=== PATIENT | male | born 1950 | race Caucasian/White ===

== ENCOUNTER 2021-02-12 13:22 | Inpatient (IN) ==
[2021-02-12 15:01] LABS: Basophils % 0.3 %; Eosinophils # 0.1 K/mcL (0.0-0.6); Eosinophils % 1.7 %; Hematocrit 35.4 % (37.5-50.1); Hemoglobin 11.7 g/dL (12.9-16.9); Immature Granulocytes % 0.2 % (0-4); Lymphocytes # 2.2 K/mcL (0.6-4.6); Lymphocytes % 34.1 %; Mean Corpuscular HGB Conc 33.1 g/dL (31.6-35.5); Mean Corpuscular Hemoglobin 32.7 pg (28.0-33.3); Mean Corpuscular Volume 98.9 fL (83.0-100.0); Mean Platelet Volume 10.9 fL (9.4-12.4); Monocytes # 0.8 K/mcL (0.0-1.3); Monocytes % 12.7 %; Neutrophils # 3.2 K/mcL (1.6-8.9); Platelet Count 168 K/mcL (140-400); Red Blood Count 3.58 M/mcL (4.19-5.50); Red Cell Distribution Width 12.3 % (11.5-14.5); White Blood Count 6.3 K/mcL (4.3-11.1)
[2021-02-12 15:22] LABS: Alanine Aminotransferase 14 Units/L (7-52); Albumin 3.3 g/dL (3.5-5.7); Albumin/Globulin Ratio 1.3 (1.1-2.2); Alkaline Phosphatase 47 Units/L (34-104); Aspartate Amino Transferase 33 Units/L (13-39); BUN/Creatinine Ratio 32 (6-26); Bilirubin,Direct 0.1 mg/dL (0.0-0.2); Bilirubin,Indirect 0.3 mg/dL (0.0-1.0); Bilirubin,Total 0.4 mg/dL (0.3-1.0); Blood Urea Nitrogen 26 mg/dL (8-23); Carbon Dioxide 27 mEq/L (23-29); Chloride 113 mEq/L (98-107); Creatine Kinase 1888 Units/L (30-223); Ethanol < 10 mg/dL (Less than 10); Globulin 2.5 g/dL (2.4-3.5); Glucose 82 mg/dL (70-105); Osmolality,Calculated 302 (280-300); Potassium 3.8 mEq/L (3.5-5.1); Sodium 144 mEq/L (136-145); Total Protein 5.8 g/dL (6.4-8.9); Troponin I < 0.03 ng/mL (< 0.04); eGFR For African Americans > 60 (> 60); eGFR For Non-African Americans > 60 (> 60)
[2021-02-12 15:35] LABS: Thyroid Stimulating Hormone 0.497 mcIU/mL (0.340-5.600)
[2021-02-12 15:40] LABS: Amphetamine Screen,Urine Negative ng/mL (Cutoff=1000); Barbiturate Screen,Urine Negative ng/mL (Cutoff=200); Benzodiazepines Screen,Urine Negative ng/mL (Cutoff=200); Cannabinoid Screen,Urine Negative ng/mL (Cutoff = 50); Cocaine Screen,Urine Negative ng/mL (Cutoff= 300); Opiate Screen,Urine Negative ng/mL (Cutoff=300); Phencyclidine Screen,Urine Negative ng/mL (Cutoff=25)
[2021-02-12 15:44] LABS: Bacteria,Urine Few per hpf (None-Few); Bilirubin,Urine Negative (Negative); Blood,Urine Negative (Negative); Clarity,Urine Clear (Clear); Color,Urine Yellow (Yellow); Glucose,Urine (UA) Normal (Normal); Ketones,Urine Negative (Negative); Leukocyte Esterase,Urine Small (Negative); Mucus,Urine Few per lpf (None-Few); Nitrite,Urine Negative (Negative); PH,Urine 6.5 pH Units (5.0-8.0); Protein,Urine Trace mg/dL (Neg-Trace); RBC,Urine 0-3 per hpf (0-3); Specific Gravity,Urine 1.027 (1.010-1.025); Urobilinogen,Urine Normal (Normal)
[2021-02-12] MEDS ORDERED: 0.9 % Sodium Chloride 1,000 ML IVC SCH (16:00)
[2021-02-12] MEDS ORDERED: Ondansetron 4 MG/2 ML VIAL IVP PRN (16:27)
[2021-02-12] MEDS ORDERED: Naloxone 0.4 MG/ML INJ IVP PRN (16:27)
[2021-02-12] MEDS: 0.9 % Sodium Chloride 1,000 ML IVC SCH ×2 (16:51→21:57)
[2021-02-12] MEDS ORDERED: Aspirin 81 MG TAB.CHEW PO SCH (17:15)
[2021-02-12 18:41] LABS: INR 1.2
[2021-02-12 18:43] LABS: Activated Partial Thrombo Time 29.1 Seconds (26.0-36.0)
[2021-02-12] MEDS: *HR* Heparin 5,000 UNIT/ML VIAL SQ SCH (19:40)
[2021-02-13] MEDS: 0.9 % Sodium Chloride 1,000 ML IVC SCH ×3 (05:26→18:04)
[2021-02-13] MEDS: *HR* Heparin 5,000 UNIT/ML VIAL SQ SCH ×2 (05:27→16:14)
[2021-02-13 06:38] LABS: Basophils % 0.6 %; Eosinophils # 0.1 K/mcL (0.0-0.6); Eosinophils % 2.5 %; Hematocrit 33.3 % (37.5-50.1); Hemoglobin 11.2 g/dL (12.9-16.9); Immature Granulocytes % 0.4 % (0-4); Lymphocytes # 1.8 K/mcL (0.6-4.6); Lymphocytes % 35.1 %; Mean Corpuscular HGB Conc 33.6 g/dL (31.6-35.5); Mean Corpuscular Hemoglobin 32.6 pg (28.0-33.3); Mean Corpuscular Volume 96.8 fL (83.0-100.0); Mean Platelet Volume 10.9 fL (9.4-12.4); Monocytes # 0.8 K/mcL (0.0-1.3); Monocytes % 15.3 %; Neutrophils # 2.4 K/mcL (1.6-8.9); Platelet Count 164 K/mcL (140-400); Red Blood Count 3.44 M/mcL (4.19-5.50); Red Cell Distribution Width 12.2 % (11.5-14.5); Segmented Neutrophils % 46.1 %; White Blood Count 5.2 K/mcL (4.3-11.1)
[2021-02-13 07:05] LABS: Platelet Estimate Normal (Normal)
[2021-02-13 07:11] LABS: BUN/Creatinine Ratio 28 (6-26); Blood Urea Nitrogen 22 mg/dL (8-23); Calcium 8.4 mg/dL (8.6-10.3); Carbon Dioxide 26 mEq/L (23-29); Chloride 109 mEq/L (98-107); Chol/HDL Ratio 4.4 (0-4.9); Cholesterol 128 mg/dL (< 200); Creatine Kinase 2418 Units/L (30-223); Glucose 92 mg/dL (70-105); HDL Cholesterol 29 mg/dL (40-59); LDL Cholesterol,Calculated 76 mg/dL (< 100); Magnesium 1.9 mg/dL (1.6-2.6); Osmolality,Calculated 293 (280-300); Phosphorous 2.9 mg/dL (2.7-4.5); Potassium 4.1 mEq/L (3.5-5.1); Sodium 140 mEq/L (136-145); Triglycerides 116 mg/dL (< 150); eGFR For African Americans > 60 (> 60); eGFR For Non-African Americans > 60 (> 60)
[2021-02-13] MEDS: cefTRIAXone 1,000 MG in Water for inj. (sterile) 10 ML IVP SCH (11:29)
[2021-02-13] MEDS: Doxycycline 100 MG in 0.9 % Sodium Chloride Mini Bag 100 ML IVPB SCH ×2 (11:30→23:11)
[2021-02-13] MEDS: Acetaminophen 325 MG TABLET PO PRN ×2 (14:45→21:16)
[2021-02-13] MEDS ORDERED: Albuterol 2.5 MG/3 ML NEBULIZER IH PRN (15:20)
[2021-02-13] MEDS ORDERED: Doxycycline 100 MG in 0.9 % Sodium Chloride Mini Bag 100 ML IVPB SCH (18:00)
[2021-02-13] MEDS: QUEtiapine Fumarate 300 MG TABLET PO SCH (21:09)
[2021-02-13] MEDS: Divalproex (24 HR) 500 MG TABLET PO SCH (21:09)
[2021-02-13] MEDS: Gabapentin 400 MG CAPSULE PO SCH (21:09)
[2021-02-13] MEDS: Mirtazapine 15 MG TABLET PO SCH (21:09)
[2021-02-13] MEDS: Cyprohepatdine 4 MG TABLET PO SCH (21:16)
[2021-02-14] MEDS: 0.9 % Sodium Chloride 1,000 ML IVC SCH ×3 (01:19→17:20)
[2021-02-14] MEDS: *HR* Heparin 5,000 UNIT/ML VIAL SQ SCH ×2 (05:10→16:29)
[2021-02-14 06:04] LABS: Basophils % 0.5 %; Eosinophils # 0.1 K/mcL (0.0-0.6); Eosinophils % 2.3 %; Hematocrit 33.3 % (37.5-50.1); Hemoglobin 11.3 g/dL (12.9-16.9); Immature Granulocytes % 0.8 % (0-4); Lymphocytes # 1.9 K/mcL (0.6-4.6); Lymphocytes % 47.7 %; Mean Corpuscular HGB Conc 33.9 g/dL (31.6-35.5); Mean Corpuscular Hemoglobin 32.6 pg (28.0-33.3); Mean Platelet Volume 10.6 fL (9.4-12.4); Monocytes # 0.6 K/mcL (0.0-1.3); Monocytes % 13.8 %; Neutrophils # 1.4 K/mcL (1.6-8.9); Platelet Count 163 K/mcL (140-400); Red Blood Count 3.47 M/mcL (4.19-5.50); Red Cell Distribution Width 11.9 % (11.5-14.5); Segmented Neutrophils % 34.9 %
[2021-02-14 06:30] LABS: BUN/Creatinine Ratio 21 (6-26); Blood Urea Nitrogen 15 mg/dL (8-23); Calcium 8.5 mg/dL (8.6-10.3); Carbon Dioxide 23 mEq/L (23-29); Chloride 113 mEq/L (98-107); Creatine Kinase 1639 Units/L (30-223); Glucose 85 mg/dL (70-105); Osmolality,Calculated 296 (280-300); Potassium 3.5 mEq/L (3.5-5.1); Sodium 143 mEq/L (136-145); eGFR For African Americans > 60 (> 60); eGFR For Non-African Americans > 60 (> 60)
[2021-02-14 06:55] LABS: Platelet Estimate Normal (Normal); Reactive Lymphocytes Present (Not Present)
[2021-02-14] MEDS: Gabapentin 400 MG CAPSULE PO SCH ×3 (08:08→19:19)
[2021-02-14] MEDS: Divalproex (24 HR) 500 MG TABLET PO SCH ×2 (08:09→19:18)
[2021-02-14] MEDS: cefTRIAXone 1,000 MG in Water for inj. (sterile) 10 ML IVP SCH (08:09)
[2021-02-14] MEDS: Doxycycline 100 MG in 0.9 % Sodium Chloride Mini Bag 100 ML IVPB SCH (10:23)
[2021-02-14] MEDS: Acetaminophen 325 MG TABLET PO PRN (10:54)
[2021-02-14] MEDS: Doxycycline 100 MG CAPSULE PO SCH (19:18)
[2021-02-14] MEDS: Cyprohepatdine 4 MG TABLET PO SCH (19:19)
[2021-02-14] MEDS: QUEtiapine Fumarate 300 MG TABLET PO SCH (19:19)
[2021-02-14] MEDS: Mirtazapine 15 MG TABLET PO SCH (19:19)
[2021-02-15] MEDS: 0.9 % Sodium Chloride 1,000 ML IVC SCH ×2 (00:08→10:24)
[2021-02-15 03:44] LABS: BUN/Creatinine Ratio 16 (6-26); Blood Urea Nitrogen 12 mg/dL (8-23); Calcium 8.4 mg/dL (8.6-10.3); Carbon Dioxide 25 mEq/L (23-29); Chloride 111 mEq/L (98-107); Glucose 95 mg/dL (70-105); Osmolality,Calculated 298 (280-300); Potassium 3.6 mEq/L (3.5-5.1); Sodium 144 mEq/L (136-145); eGFR For African Americans > 60 (> 60); eGFR For Non-African Americans > 60 (> 60)
[2021-02-15 03:49] LABS: Basophils % 0.7 %; Eosinophils # 0.1 K/mcL (0.0-0.6); Eosinophils % 2.9 %; Hematocrit 30.7 % (37.5-50.1); Hemoglobin 10.5 g/dL (12.9-16.9); Immature Granulocytes % 1.1 % (0-4); Lymphocytes # 2.1 K/mcL (0.6-4.6); Lymphocytes % 46.2 %; Mean Corpuscular HGB Conc 34.2 g/dL (31.6-35.5); Mean Corpuscular Hemoglobin 32.4 pg (28.0-33.3); Mean Corpuscular Volume 94.8 fL (83.0-100.0); Mean Platelet Volume 10.7 fL (9.4-12.4); Monocytes # 0.6 K/mcL (0.0-1.3); Monocytes % 12.5 %; Neutrophils # 1.7 K/mcL (1.6-8.9); Platelet Count 170 K/mcL (140-400); Red Blood Count 3.24 M/mcL (4.19-5.50); Red Cell Distribution Width 11.9 % (11.5-14.5); Segmented Neutrophils % 36.6 %; White Blood Count 4.6 K/mcL (4.3-11.1)
[2021-02-15] MEDS: *HR* Heparin 5,000 UNIT/ML VIAL SQ SCH ×2 (04:08→16:37)
[2021-02-15] MEDS: Acetaminophen 325 MG TABLET PO PRN ×3 (04:08→20:03)
[2021-02-15 05:06] LABS: Platelet Estimate Normal (Normal); Reactive Lymphocytes Present (Not Present)
[2021-02-15] MEDS: Doxycycline 100 MG CAPSULE PO SCH ×2 (07:40→20:04)
[2021-02-15] MEDS: Divalproex (24 HR) 500 MG TABLET PO SCH ×2 (07:40→20:04)
[2021-02-15] MEDS: Gabapentin 400 MG CAPSULE PO SCH ×3 (07:40→20:04)
[2021-02-15] MEDS: Lactobacillus 1 EACH CAP.SPRINK PO SCH ×2 (13:22→20:03)
[2021-02-15] MEDS: Mirtazapine 15 MG TABLET PO SCH (20:04)
[2021-02-15] MEDS: Cyprohepatdine 4 MG TABLET PO SCH (20:04)
[2021-02-15] MEDS: QUEtiapine Fumarate 300 MG TABLET PO SCH (20:04)
[2021-02-16] MEDS: *HR* Heparin 5,000 UNIT/ML VIAL SQ SCH ×2 (04:55→17:48)
[2021-02-16] MEDS: Acetaminophen 325 MG TABLET PO PRN ×2 (08:24→17:47)
[2021-02-16] MEDS: Doxycycline 100 MG CAPSULE PO SCH ×2 (08:24→22:03)
[2021-02-16] MEDS: Divalproex (24 HR) 500 MG TABLET PO SCH ×2 (08:25→22:03)
[2021-02-16] MEDS: Lactobacillus 1 EACH CAP.SPRINK PO SCH ×2 (08:25→22:03)
[2021-02-16] MEDS: Gabapentin 400 MG CAPSULE PO SCH ×3 (08:25→22:03)
[2021-02-16] MEDS: Cyprohepatdine 4 MG TABLET PO SCH (22:03)
[2021-02-16] MEDS: Mirtazapine 15 MG TABLET PO SCH (22:03)
[2021-02-16] MEDS: QUEtiapine Fumarate 300 MG TABLET PO SCH (22:03)
[2021-02-17] MEDS: *HR* Heparin 5,000 UNIT/ML VIAL SQ SCH ×2 (05:11→16:26)
[2021-02-17] MEDS: Gabapentin 400 MG CAPSULE PO SCH ×3 (07:51→21:26)
[2021-02-17] MEDS: Lactobacillus 1 EACH CAP.SPRINK PO SCH ×2 (07:51→21:26)
[2021-02-17] MEDS: Divalproex (24 HR) 500 MG TABLET PO SCH ×2 (07:51→21:26)
[2021-02-17] MEDS: Doxycycline 100 MG CAPSULE PO SCH ×2 (07:51→21:27)
[2021-02-17] MEDS: Acetaminophen 325 MG TABLET PO PRN (07:54)
[2021-02-17] MEDS: Mirtazapine 15 MG TABLET PO SCH (21:26)
[2021-02-17] MEDS: Cyprohepatdine 4 MG TABLET PO SCH (21:26)
[2021-02-17] MEDS: QUEtiapine Fumarate 300 MG TABLET PO SCH (21:27)
[2021-02-18] MEDS: *HR* Heparin 5,000 UNIT/ML VIAL SQ SCH ×2 (05:26→16:46)
[2021-02-18] MEDS: Doxycycline 100 MG CAPSULE PO SCH (08:56)
[2021-02-18] MEDS: Divalproex (24 HR) 500 MG TABLET PO SCH ×2 (08:56→22:24)
[2021-02-18] MEDS: Acetaminophen 325 MG TABLET PO PRN (08:56)
[2021-02-18] MEDS: Lactobacillus 1 EACH CAP.SPRINK PO SCH ×2 (08:56→22:24)
[2021-02-18] MEDS: Gabapentin 400 MG CAPSULE PO SCH ×3 (08:56→22:22)
[2021-02-18] MEDS: Cyprohepatdine 4 MG TABLET PO SCH (22:22)
[2021-02-18] MEDS: Mirtazapine 15 MG TABLET PO SCH (22:22)
[2021-02-18] MEDS: QUEtiapine Fumarate 300 MG TABLET PO SCH (22:23)
[2021-02-19] MEDS: *HR* Heparin 5,000 UNIT/ML VIAL SQ SCH (04:56)
[2021-02-19 06:55] VITALS: BP 128/88
[2021-02-19] MEDS: Lactobacillus 1 EACH CAP.SPRINK PO SCH (09:44)
[2021-02-19] MEDS: Divalproex (24 HR) 500 MG TABLET PO SCH (09:44)
[2021-02-19] MEDS: Gabapentin 400 MG CAPSULE PO SCH (09:45)
[2021-02-19 12:27] LABS: Adenovirus Not Detected (Not Detect); Bordetella Pertussis Not Detected (Not Detect); Chlamydophila pneumoniae Not Detected (Not Detect); Coronavirus 229E Not Detected (Not Detect); Coronavirus HKU1 Not Detected (Not Detect); Coronavirus NL63 Not Detected (Not Detect); Coronavirus OC43 Not Detected (Not Detect); Human Metapneumovirus Not Detected (Not Detect); Human Rhinovirus/Enterovirus Not Detected (Not Detect); Influenza A Subtype 2009 H1 Not Detected (Not Detect); Influenza B Not Detected (Not Detect); Mycoplasma pneumoniae Not Detected (Not Detect); Parainfluenza Virus 1 Not Detected (Not Detect); Parainfluenza Virus 2 Not Detected (Not Detect); Parainfluenza Virus 3 Not Detected (Not Detect); Parainfluenza Virus 4 Not Detected (Not Detect); Respiratory Syncytial Virus Not Detected (Not Detect); SARS-CoV-2 Not Detected (Not Detect)
== END 2021-02-19 13:18 | DRG 689 ==
LOC: EMEROOARM 13:22 → 3BNU 13:22 → SUATTDRO 16:18 → 3BNU 17:01 → SUATTDRO 02-14 16:45
PROVIDERS: ADMIT Internal Medicine; ATTEND Internal Medicine